=== PATIENT | female | born 1990 | race Caucasian/White ===

== ENCOUNTER 2017-07-08 13:48 | Emergency (ER) | payer MEDICAID ==
[2017-07-08 13:58] VITALS: BP 101/79; PULSE 78; TEMP 98.4; O2SAT 98
[2017-07-08 15:42] VITALS: RESP 20
--- NOTE | 2017-07-08 17:25 | EDPHY ---
H & P Stated Complaint: Flu sxs x several days Time Seen by Provider: 07/08/17 15:36 HPI/ROS: Chief complaint: Cold symptoms History of present illness: This is a 26-year-old female who presents to the emergency department for cold symptoms. Patient reports he has been sick for the last few days. Reports sore throat, runny nose, nasal congestion, nonproductive cough. She denies precipitating factors. She denies alleviating factors. She denies other associated signs or symptoms including no current fevers, no rash, no respiratory distress. - Personal History LMP (Females 10-55): IUD In Place Current Tetanus Diphtheria and Acellular Pertussis (TDAP): Yes Tetanus Vaccine Date: 2009 - Medical/Surgical History Hx Asthma: Yes Hx Chronic Respiratory Disease: No Hx Diabetes: No Hx Cardiac Disease: No Hx Renal Disease: No Hx Cirrhosis: No Hx Alcoholism: No Hx HIV/AIDS: No Hx Splenectomy or Spleen Trauma: No Other PMH: PMH: pre diabetes, sleep apnea, PTSD, night terrors, depression, ADHD , anxiety, panic attacks, IV drug use - Social History Smoking Status: Current every day smoker - Physical Exam Exam: General Appearance: Alert and no distress. Eyes: Pupils equal and round no injection. ENT:Tympanic membranes, external auditory canals, external ears and surrounding soft tissue including over the mastoids are unremarkable. Nasopharynx is not injected. There is no rhinorrhea. Oropharynx is mildly injected. There is no edema. There is no exudate. There is no asymmetry. The uvula is midline. No elevation of the tongue. There is no hoarseness, no drooling, no trismus, no stridor. Respiratory: Chest is non tender, lungs are clear to auscultation. Cardiac: regular rate and rhythm Musculoskeletal: Neck is supple and non tender. Extremities have full range of motion and are non tender. Skin: No rashes or lesions. Constitutional: Initial Vital Signs Temperature (C) 36.9 C 07/08/17 13:51 Heart Rate 78 07/08/17 13:51 Respiratory Rate 108 H 07/08/17 13:51 Blood Pressure 101/79 07/08/17 13:51 O2 Sat (%) 98 07/08/17 13:51 O2 Delivery Mode Room Air Allergies/Adverse Reactions: Penicillins Allergy (Mild, Verified 07/08/17 13:51) Rash Home Medications: Medication Instructions Recorded Gabapentin [Neurontin] 900 mg PO HS 08/06/15 Methadone HCl [Methadone Oral 25 mg PO DAILY 08/06/15 Liquid] traZODone [traZODONE 100MG (RX)] 200 mg PO HS 08/06/15 Ondansetron Odt [Zofran Odt 4 mg 4 mg PO Q4 PRN #10 tab 11/14/15 (RX)] VYVANSE 11/29/15 Doxycycline Hyclate 06/28/16 Fluticasone Nasal [Flonase Nasal 2 sprays NASAL DAILY #1 mdi 06/28/16 [place] (RX)] Medical Decision Making ED Course/Re-evaluation: Patient seen under the supervision of my secondary supervising physician Dr. Joni Kingsley. Patient presents to the emergency department for cold symptoms. She is nontoxic. Influenza swab is negative. Strep swab is negative. Likely a viral syndrome. She is discharged home. Home care is discussed. Return precautions are given. Of note while completing this patient's chart her strep culture came back positive. She was contacted informed of this by the charge nurse. She has a penicillin allergy and is therefore started on a Z-Didier. Differential Diagnosis: Included but not limited to pharyngitis, strep pharyngitis, influenza, sinusitis , unlikely abscesses such as peritonsillar abscess or retropharyngeal abscess or Tyler's angina Departure - Departure Disposition: Home, Routine, Self-Care Clinical Impression: Viral syndrome Condition: Good Instructions: Viral Syndrome (ED) Additional Instructions: Follow-up with the primary care doctor for recheck Use [id number] cold medications for symptom control If symptoms worsen or new symptoms develop return to the emergency room for recheck Referrals: Rico Esposito MD [Primary Care Provider] - As per Instructions Stand Alone Forms: Work Excuse
[2017-07-08 20:15] LABS: GROUP A STREP DNA (THROAT) POSITIVE (NEGATIVE)
== END 2017-07-08 17:51 | disposition home or self-care (01) ==
DX: B34.9 Viral infection, unspecified (principal); J45.909 Unspecified asthma, uncomplicated; F17.200 Nicotine dependence, unspecified, uncomplicated

== ENCOUNTER 2017-11-28 12:23 | Emergency (ER) | payer MEDICAID ==
[2017-11-28 12:32] VITALS: BP 117/91
[2017-11-28] MEDS ORDERED: CHLORDIAZEPOXIDE 25MG PREPK#6 BTL TAKEHOME ONE (12:36)
--- NOTE | 2017-11-28 13:04 | EDPHY ---
H & P Stated Complaint: etoh withdrawl, sent by arc - Personal History LMP (Females 10-55): 8-14 Days Ago Current Tetanus/Diphtheria Vaccine: Yes Current Tetanus Diphtheria and Acellular Pertussis (TDAP): Yes Tetanus Vaccine Date: 2009 - Medical/Surgical History Hx Asthma: Yes Hx Chronic Respiratory Disease: No Hx Diabetes: No Hx Cardiac Disease: No Hx Renal Disease: No Hx Cirrhosis: No Hx Alcoholism: No Hx HIV/AIDS: No Hx Splenectomy or Spleen Trauma: No Other PMH: PMH: pre diabetes, sleep apnea, PTSD, night terrors, depression, ADHD , anxiety, panic attacks, IV drug use. psh: , dental - Social History Smoking Status: Current every day smoker Time Seen by Provider: 11/28/17 12:50 HPI/ROS: CHIEF COMPLAINT:"I am withdrawing" HISTORY OF PRESENT ILLNESS: 27-year-old female history of daily alcohol use her arrives via private vehicle after she self presented [facility]. Last drink of alcohol was approximately 8:00 a.m. Today. She is feeling tremulous. He has prior history of seizures from alcohol withdrawal none recently. No hallucination. No suicidal or homicidal ideation. No trauma no fall REVIEW OF SYSTEMS: A ten point review of systems was performed and is negative with the exception of the items mentioned in the HPI PAST MEDICAL & SURGICAL HISTORY: Alcoholism SOCIAL HISTORY: Last drink of alcohol 8:00 a.m. Today PHYSICAL EXAM (Prior to examination, patient consented to physical exam, hands were washed and my usual and customary physical exam procedures followed) 1) GENERAL: Well-developed, well-nourished, alert and oriented. Appears anxious. Tremulous. 2) HEAD: Normocephalic, atraumatic 3) HEENT: Pupils equal, round, reactive to light bilaterally. Sclera anicteric. 4) NECK: Full range of motion, no meningeal signs. 5) LUNGS: Clear auscultation bilaterally, no wheezes, no rhonchi, no retractions. 6) HEART: Regular rate and rhythm, no murmur, no heave, no gallop. 7) ABDOMEN: No guarding, no rebound, no focal tendernes, 8) MUSCULOSKELETAL: No peripheral edema or discoloration.] 9) BACK: No obvious trauma, no visual or palpable abnormality. 10) SKIN: No rash, no petechiae. 11) Psychiatric: Patient is oriented X 3, there is no agitation. Tremulous DIFFERENTIAL DIAGNOSIS: In no particular order including but not limited to delirium tremens, acute alcohol withdrawal, alcohol withdrawal seizure (Murtaza Bond Leeanne) Constitutional: Initial Vital Signs Temperature (C) 36.5 C 11/28/17 12:30 Heart Rate 111 H 11/28/17 12:30 Respiratory Rate 16 11/28/17 12:30 Blood Pressure 117/91 H 11/28/17 12:30 O2 Sat (%) 97 11/28/17 12:30 O2 Delivery Mode Room Air Allergies/Adverse Reactions: Penicillins Allergy (Mild, Verified 07/08/17 13:51) Rash Home Medications: Medication Instructions Recorded Gabapentin [Neurontin] 900 mg PO HS 08/06/15 Methadone HCl [Methadone Oral 25 mg PO DAILY 08/06/15 Liquid] traZODone [traZODONE 100MG (RX)] 200 mg PO HS 08/06/15 Ondansetron Odt [Zofran Odt 4 mg 4 mg PO Q4 PRN #10 tab 11/14/15 (RX)] VYVANSE 11/29/15 Doxycycline Hyclate 06/28/16 Fluticasone Nasal [Flonase Nasal 2 sprays NASAL DAILY #1 mdi 06/28/16 [place] (RX)] Medical Decision Making ED Course/Re-evaluation: Doubt delirium tremens. No seizure. [facility]. Care of patient under supervision of [secondary] supervising physician Dr Messi Lynn. (Murtaza Bond Leeanne) I did not see this patient while she was in the emergency department. However her care was discussed with the PA while the patient was in the department. I agree with treatment plan and management (Messi Lynn) - Data Points Medications Given: Discontinued Medications Chlordiazepoxide (Librium 25 Mg Prepack#6) 1 btl TAKEHOME EDNOW ONE Stop: 11/28/17 12:37 Last Admin: 11/28/17 13:04 Dose: 1 btl Departure - Departure Disposition: Home, Routine, Self-Care Clinical Impression: Alcohol withdrawal Qualifiers: Complication of substance-induced condition: uncomplicated Qualified Code(s): F10.230 - Alcohol dependence with withdrawal, uncomplicated Condition: Good Instructions: Chlordiazepoxide (By mouth), Abuse of Alcohol (ED) Referrals: [facility] [Outside] - 1-2 days without fail
== END 2017-11-28 13:16 | disposition home or self-care (01) ==
DX: F10.230 Alcohol dependence with withdrawal, uncomplicated (principal); J45.909 Unspecified asthma, uncomplicated; F17.200 Nicotine dependence, unspecified, uncomplicated

== ENCOUNTER 2018-05-09 19:19 | Emergency (ER) | payer MEDICAID ==
--- NOTE | 2018-05-09 19:46 | EDPHY ---
General - History Smoking Status: Current every day smoker Time Seen by Provider: 05/09/18 19:39 Narrative: CHIEF COMPLAINT: "I am withdrawing from alcohol" HISTORY OF PRESENT ILLNESS: Patient presents with complaints of "withdrawing from alcohol."She reports ingestion of approximately 2 vodka daily, last intake approximately 23 hr ago. She has had nausea, vomiting, abdominal pain, shaking and chills. No chest pain. No headache. She feels that "my insides are being scooped out."No bleeding from any site. No trauma or injury. She denies any drug use today. She has several year history of alcohol abuse. She denies any history of seizures. No other associated complaints or modifying factors. REVIEW OF SYSTEMS: 10 systems were reviewed and negative with the exception of the elements mentioned in the history of present illness. PCP: Dr. Rico Esposito SPECIALISTS: None PAST MEDICAL HISTORY: Alcohol dependency, previous substance abuse, PTSD, nightmares, depression, attention deficit hyperactivity disorder, anxiety, panic attacks PAST SURGICAL HISTORY: , dental surgery SOCIAL HISTORY: Endorses tobacco and alcohol use. Denies any illicit substance use. Previous IV drug user FAMILY HISTORY: Noncontributory EXAMINATION: General Appearance: Alert, no distress Head: normocephalic, atraumatic Eyes: Pupils equal and round, no conjunctival pallor or injection ENT, Mouth: Mucous membranes moist Neck: Normal inspection, supple, non-tender Respiratory: Lungs are clear to auscultation Cardiovascular: Tachycardic rate. Regular rhythm. No murmur Gastrointestinal: Abdomen is soft and nontender Back: non-tender, no bony abnormalities Neurological: GCS 15. A&O, nonfocal, normal gait. No tremor. Normal finger-to -nose. No pronator drift Skin: Warm and dry, no rash no petechiae or purpura Extremities: Nontender, no pedal edema Psychiatric: Mood and affect normal DIFFERENTIAL DIAGNOSES: Including but not limited to acute alcohol intoxication, alcohol withdrawal, delirium tremens, substance abuse MDM: 7:45 p.m. Reports of acute alcohol withdrawal with suspected acute alcohol intoxication. I do not detect strong odor of alcohol, but she has no tremor. There is no encephalopathy. No evidence of delirium tremens. She is afebrile. I do not appreciate any seizure activity. I have ordered laboratory studies were her vomiting abdominal pain, but her abdominal exam remains benign. MARIEL score being obtained. 8:10 p.m. Initial CIWA score is 2. 8:50 p.m. Patient's blood alcohol level is 359. She exhibits no signs of withdrawals to me. She has been examined by attending physician. We both agreed she is stable for discharge to the [facility] for monitor detoxification. She is ambulatory without assistance several times in this department. No vomiting. Her abdominal pain decreased in her abdominal exam remains benign. We discussed discharge to the [facility] for monitor detoxification, and she is agreeable and would like to do this. Discharged stable condition to [facility] for detox. SUPERVISION: Patient was evaluated and examined in conjunction with my secondary supervising physician as documented. We have both examined the patient. CONSULTATION: None (Gabriel Kramer) Medical Decision Making: INDEPENDENT PHYSICIAN EVALUATION I evaluated and participated in the management of the patient. I also evaluated the patient independently. My co-signature indicates that I have reviewed this chart and I agree with the findings and plan of care as documented. My personal H&P findings include: The patient presents the emergency department with complaints of being alcohol withdrawal. She did drink alcohol earlier today. She describes nausea and restlessness. The patient denies any additional acute medical complaints. She denies any suicidal or homicidal ideation. The patient is interested in going to the [facility]. Physical exam General Appearance: Alert, no distress Eyes: Pupils equal and round no pallor or injection ENT, Mouth: Mucous membranes moist Respiratory: There are no retractions, lungs are clear to auscultation Cardiovascular: Regular rate and rhythm Gastrointestinal: Abdomen is soft and nontender, no masses, bowel sounds normal Neurological: A&O, normal motor function, normal sensory exam, normal cranial nerves Skin: Warm and dry, no rashes Musculoskeletal: Neck is supple nontender Extremities: symmetrical, full range of motion Psychiatric: Patient is oriented X 3, there is no agitation ED course Patient's vital signs are stable. She did receive some IV fluids. The patient' s CIWA score was 2. She did receive 1 mg of IV Ativan. The patient is amenable to going to the [facility]. She will be discharged to their with a Librium prepack (Tomas Navas) - Objective Vital Signs: Initial Vital Signs Temperature (C) 98.1 F 05/09/18 19:37 Heart Rate 116 H 09/05/18 19:37 Respiratory Rate 20 05/09/18 19:37 Blood Pressure 149/101 H 05/09/18 19:37 O2 Sat (%) 95 05/09/18 19:37 O2 Delivery Mode Room Air Allergies/Adverse Reactions: Penicillins Allergy (Mild, Verified 05/09/18 19:37) Rash Home Medications: Medication Instructions Recorded Gabapentin [Neurontin] 900 mg PO HS 08/06/15 Methadone HCl [Methadone Oral 25 mg PO DAILY 08/06/15 Liquid] traZODone [traZODONE 100MG (RX)] 200 mg PO HS 08/06/15 Ondansetron Odt [Zofran Odt 4 mg 4 mg PO Q4 PRN #10 tab 11/14/15 (RX)] VYVANSE 11/29/15 Doxycycline Hyclate 06/28/16 Fluticasone Nasal [Flonase Nasal 2 sprays NASAL DAILY #1 mdi 06/28/16 [place] (RX)] Laboratory Results: Laboratory Results 05/09/18 19:55 05/09/18 05/09/18 19:55 19:55 Sodium 140 mEq/L mEq/L (135-145) Potassium 3.6 mEq/L mEq/L (3.3-5.0) Chloride 96 mEq/L L mEq/L (97-110) Carbon Dioxide 22 mEq/l mEq/l (22-31) Anion Gap 22 mEq/L H mEq/L (8-16) BUN 7 mg/dL mg/dL (7-23) Creatinine 0.7 mg/dL mg/dL (0.6-1.0) Estimated GFR > 60 Glucose 77 mg/dL mg/dL (70-100) Calcium 8.4 mg/dL L mg/dL (8.5-10.4) Lipase 244 IU/L IU/L (23-300) Beta HCG, Qual NEGATIVE Ethyl Alcohol 389 mg/dL H mg/dL (0-10) Medications Given: Discontinued Medications Chlordiazepoxide (Librium 25 Mg Prepack#6) 1 btl TAKEHOME EDNOW ONE Stop: 05/09/18 21:00 Last Admin: 05/09/18 21:06 Dose: 1 btl Sodium Chloride (Ns) 1,000 mls @ 0 mls/hr IV EDNOW ONE; Wide Open PRN Reason: Protocol Stop: 05/09/18 19:52 Last Admin: 05/09/18 20:21 Dose: 1,000 mls Lorazepam (Ativan Injection) 1 mg IVP EDNOW ONE Stop: 05/09/18 20:41 Last Admin: 05/09/18 20:47 Dose: 1 mg Departure - Departure Disposition: Home, Routine, Self-Care Clinical Impression: Alcohol dependence Qualifiers: Substance use status: unspecified alcohol-induced disorder Qualified Code(s): F10.29 - Alcohol dependence with unspecified alcohol-induced disorder Condition: Good Instructions: Chlordiazepoxide (By mouth), Alcohol Dependence (ED) Additional Instructions: 1. Discharge to [facility] for monitored detoxification 2. Contact her primary care physician tomorrow for further help with alcohol cessation Referrals: Rico Esposito MD [Primary Care Provider] - As per Instructions [facility] 24 Hours [Outside] - As per Instructions
[2018-05-09] MEDS ORDERED: NS 1,000 ML IV ONE (19:51)
[2018-05-09] MEDS ORDERED: LORazepam 2 MG/ML INJ IVP ONE (20:40)
[2018-05-09] MEDS ORDERED: CHLORDIAZEPOXIDE 25MG PREPK#6 BTL TAKEHOME ONE (20:59)
[2018-05-09 21:16] VITALS: BP 123/95
== END 2018-05-09 21:10 | disposition home or self-care (01) ==
DX: F10.29 Alcohol dependence with unspecified alcohol-induced disorder (principal); F10.220 Alcohol dependence with intoxication, uncomplicated; E86.9 Volume depletion, unspecified; Y90.8 Blood alcohol level of 240 mg/100 ml or more
CPT/HCPCS: 96374; G0480; J2060

== ENCOUNTER 2018-09-26 21:45 | Emergency (ER) | payer MEDICAID, OTHER ==
--- NOTE | 2018-09-26 22:14 | EDPHY ---
H & P Stated Complaint: FEVER NAUSEA FLU LIKE SX 1 WK Time Seen by Provider: 09/26/18 22:13 HPI/ROS: HPI: This is a 27-year-old female who presents with Chief Complaint: FEVER NAUSEA FLU LIKE SX 1 WK Location: GI Quality: Fever, nausea Duration: 3 week Signs and Symptoms: + subjective fever, + nausea, + vomiting, no diarrhea, no urinary symptoms, no chest pain, no shortness of breath, no wheezing, no cough, no sore throat, no neck stiffness, no joint pain, no swollen glands, no ear pain , no rash Timing: Acute, worse Severity: [id number] Context: Patient has a history of pre diabetes, depression, IV drug use, IUD in place, presents today with 3 week history of subjective fever, nausea, vomiting several days ago but none recently, diarrhea several days ago but none recently accompanied by right lower quadrant pain in the last 2 days. Patient reports that she still able to eat and drink. She reports that she has had a fever that has been subjective in nature. She believes that she may have had the flu a week ago or maybe "a stomach bug."Patient reports that she will not be able to afford any of the medications that I prescribed. Patient has no Medicaid since the beginning of the year and she has been trying for the last 3 weeks. Modifying Factors: None Comment: ROS: A comprehensive 10 system review of systems is otherwise negative aside from elements mentioned in the history of present illness. MEDICAL/SURGICAL/SOCIAL HISTORY: PMH: pre diabetes, sleep apnea, PTSD, night terrors, depression, ADHD, anxiety, panic attacks, IV drug use, IUD in place psh: , dental Social history: Current every day smoker. Family history noncontributory. CONSTITUTIONAL: Nontoxic-appearing young adult female, awake and alert, no obvious distress HEENT: Atraumatic and normocephalic, PERRL, EOMI. Nares patent; no rhinorrhea; no nasal mucosal edema. Tympanic membranes clear. Oropharynx clear, no exudate and moist pink mucosa. Airway patent. No lymphadenopathy. No meningismus. Cardiovascular: Normal S1/S2, regular rate, regular rhythm, without murmur rub or gallop. PULMONARY/CHEST: Symmetrical and nontender. Clear to auscultation bilaterally. Good air movement. No accessory muscle usage. ABDOMEN: Soft, nondistended, moderate right lower quadrant tenderness, no rebound, no guarding, no peritoneal signs, no masses or organomegaly. No CVAT. EXTREMITIES: 2/2 pulses, strength 5/5, no deformities, no clubbing, no cyanosis or edema. NEUROLOGICAL: no focal neuro deficits. GCS 15. SKIN: Warm and dry, no erythema. no rash. Good capillary refill. Source: Patient Exam Limitations: No limitations - Personal History LMP (Females 10-55): IUD In Place Current Tetanus/Diphtheria Vaccine: Yes Current Tetanus Diphtheria and Acellular Pertussis (TDAP): Yes Tetanus Vaccine Date: 2009 - Medical/Surgical History Hx Asthma: Yes Hx Chronic Respiratory Disease: No Hx Diabetes: No Hx Cardiac Disease: No Hx Renal Disease: No Hx Cirrhosis: No Hx Alcoholism: Yes Hx HIV/AIDS: No Hx Splenectomy or Spleen Trauma: No Other PMH: PMH: pre diabetes, sleep apnea, PTSD, night terrors, depression, ADHD , anxiety, panic attacks, IV drug use. psh: , dental - Social History Smoking Status: Current every day smoker Constitutional: Initial Vital Signs Temperature (C) 36.8 C 09/26/18 21:52 Heart Rate 91 09/26/18 21:52 Respiratory Rate 18 09/26/18 21:52 Blood Pressure 109/66 09/26/18 21:52 O2 Sat (%) 99 09/26/18 21:52 O2 Delivery Mode Room Air Allergies/Adverse Reactions: Penicillins Allergy (Mild, Verified 09/26/18 21:54) Rash Home Medications: Medication Instructions Recorded traZODone [traZODONE 100MG (RX)] 200 mg PO HS 08/06/15 Albuterol Sulfate [Proair Hfa] 8.5 gm IH 09/26/18 Dextroamphetamine/Amphetamine 30 mg PO BID 09/26/18 [Adderall 30 mg Tablet] Medical Decision Making - Diagnostics Imaging Results: Imaging Impressions Abdomen CT 09/26/18 22:19 Impression: 1. Mild bladder wall thickening, which could be related to underdistention or inflammation/infection. 2. Moderate stool in the colon. 3. Cholelithiasis without evidence of cholecystitis. 4. Heterogeneous hepatic enhancement, possibly related to vigorous IV hydration. 5. Narrowing of the left renal vein between the aorta and SMA, of doubtful clinical significance in absence of proteinuria or hematuria. 6. Additional findings as above. Findings discussed with Carla Nguyen 09/26/2018 at 23:40. ED Course/Re-evaluation: Vital signs reviewed and stable upon arrival. No systemic signs. IV access, laboratory studies, urinalysis, CT abdomen and pelvis scan ordered Given 1 L normal saline, IV Toradol 30 mg, IV promethazine 12.5 mg Laboratory studies reviewed. No signs of leukocytosis/anemia/platelet dysfunction/LILIANE/elevated LFTs/electrolyte imbalance/pancreatitis. Called by Radiology who advised that CT abdomen and pelvis scan shows no signs appendicitis, gallstones without coli cystitis, no obstruction, no diverticulitis. 0023: Reassessed patient who is very tearful and frustrated. I suspect that some of her GI issues are related to her stress level. She reports that she has been trying to get Medicaid for the last 3 weeks. She reports that she has daily nausea and has almost ran out of Zofran which "does not work." I offered patient admission for acute nausea and vomiting and she adamantly declines. Case management consult for financial resources and primary care. Patient was given Bentyl 20 mg and a prepack of promethazine This patient was seen under the supervision of my secondary supervising physician. I evaluated care for this patient with attending. Discussed this patient with Dr. Schultz who did not see the patient. Differential Diagnosis: Abdominal pain including but not limited to appendicitis, cholecystitis, gastritis and urinary tract infection. - Data Points Laboratory Results: Laboratory Results 09/26/18 22:20 09/26/18 22:20 09/26/18 09/26/18 09/26/18 22:20 22:20 22:20 WBC 9.09 10^3/uL 10^3/uL (3.80-9.50) RBC 4.51 10^6/uL 10^6/uL (4.18-5.33) Hgb 13.9 g/dL g/dL (12.6-16.3) Hct 40.4 % % (38.0-47.0) MCV 89.6 fL fL (81.5-99.8) MCH 30.8 pg pg (27.9-34.1) MCHC 34.4 g/dL g/dL (32.4-36.7) RDW 12.7 % % (11.5-15.2) Plt Count 293 10^3/uL 10^3/uL (150-400) MPV 9.5 fL fL (8.7-11.7) Neut % (Auto) 59.6 % % (39.3-74.2) Lymph % (Auto) 32.2 % % (15.0-45.0) Dale % (Auto) 6.1 % % (4.5-13.0) Eos % (Auto) 1.2 % % (0.6-7.6) Baso % (Auto) 0.7 % % (0.3-1.7) Nucleat RBC Rel Count 0.0 % % (0.0-0.2) Absolute Neuts (auto) 5.42 10^3/uL 10^3/uL (1.70-6.50) Absolute Lymphs (auto) 2.93 10^3/uL 10^3/uL (1.00-3.00) Absolute Monos (auto) 0.55 10^3/uL 10^3/uL (0.30-0.80) Absolute Eos (auto) 0.11 10^3/uL 10^3/uL (0.03-0.40) Absolute Basos (auto) 0.06 10^3/uL 10^3/uL (0.02-0.10) Absolute Nucleated RBC 0.00 10^3/uL 10^3/uL (0-0.01) Immature Gran % 0.2 % % (0.0-1.1) Immature Gran # 0.02 10^3/uL 10^3/uL (0.00-0.10) Sodium 135 mEq/L mEq/L (135-145) Potassium 4.2 mEq/L mEq/L (3.5-5.2) Chloride 104 mEq/L mEq/L (97-110) Carbon Dioxide 25 mEq/l mEq/l (22-31) Anion Gap 6 mEq/L mEq/L (6-14) BUN 8 mg/dL mg/dL (7-23) Creatinine 0.7 mg/dL mg/dL (0.6-1.0) Estimated GFR > 60 Glucose 79 mg/dL mg/dL (70-100) Calcium 8.9 mg/dL mg/dL (8.5-10.4) Total Bilirubin 0.4 mg/dL mg/dL (0.1-1.4) Conjugated Bilirubin 0.2 mg/dL mg/dL (0.0-0.5) Unconjugated Bilirubin 0.2 mg/dL mg/dL (0.0-1.1) AST 19 IU/L IU/L (14-46) ALT 24 IU/L IU/L (9-52) Alkaline Phosphatase 45 IU/L IU/L (38-126) Total Protein 6.8 g/dL g/dL (6.3-8.2) Albumin 4.2 g/dL g/dL (3.5-5.0) Lipase 154 IU/L IU/L (23-300) Beta HCG, Qual NEGATIVE Medications Given: Discontinued Medications Sodium Chloride (Ns) 1,000 mls @ 0 mls/hr IV EDNOW ONE; Wide Open PRN Reason: Protocol Stop: 09/26/18 22:20 Last Admin: 09/26/18 22:35 Dose: 1,000 mls Ketorolac Tromethamine (Toradol) 30 mg IVP EDNOW ONE Stop: 09/26/18 22:20 Last Admin: 09/26/18 22:33 Dose: 30 mg Promethazine HCl (Phenergan) 12.5 mg IVP EDNOW ONE Stop: 09/26/18 22:20 Last Admin: 09/26/18 22:33 Dose: 12.5 mg Departure - Departure Disposition: Home, Routine, Self-Care Clinical Impression: Nausea & vomiting Qualifiers: Vomiting type: unspecified Vomiting Intractability: non-intractable Qualified Code(s): R11.2 - Nausea with vomiting, unspecified Abdominal pain Qualifiers: Abdominal location: generalized Qualified Code(s): R10.84 - Generalized abdominal pain Condition: Good Instructions: Acute Nausea and Vomiting (ED), Acute Abdominal Pain (ED) Additional Instructions: Consume a minimum of 8-10 glasses of water or electrolyte fluid replacement drinks that include Gatorade, Powerade, Pedialyte. Eat a bland diet for the next 48 hours and then slowly advance as tolerated. Take Phenergan 1 tab every 6 hours as needed for nausea, vomiting. Return to the Emergency Room if symptoms do not resolve in the next 72 hours, you spike a fever > 102 F, or experience intractable abdominal pain/nausea/ vomiting. Referrals: Rico Esposito MD [Primary Care Provider] - As per Instructions Stand Alone Forms: Work Excuse
[2018-09-26] MEDS ORDERED: NS 1,000 ML IV ONE (22:19)
[2018-09-26] MEDS ORDERED: PROMETHAZINE HCL 25 MG/ML INJ IVP ONE (22:19)
[2018-09-26] MEDS ORDERED: KETOROLAC 30 MG/1 ML SDV IVP ONE (22:19)
[2018-09-26 22:39] LABS: PLATELET COUNT 293 10^3/uL (150-400)
[2018-09-26] MEDS ORDERED: IOPAMIDOL (ISOVUE 370) 100 ML BTL IV ONE (23:01)
[2018-09-27] MEDS ORDERED: DICYCLOMINE 10 MG CAP PO ONE (00:21)
[2018-09-27] MEDS ORDERED: PROMETHAZINE 25 MG PREPACK #4 BTL TAKEHOME ONE ×2 (00:21→00:37)
[2018-09-27 00:50] VITALS: BP 119/84
== END 2018-09-27 00:49 | disposition home or self-care (01) ==
DX: R11.2 Nausea with vomiting, unspecified (principal); R10.84 Generalized abdominal pain; R73.03 Prediabetes
CPT/HCPCS: 96374; J1885; J2550; Q9967

== ENCOUNTER 2018-10-30 19:50 | Emergency (ER) | payer MEDICAID ==
--- NOTE | 2018-10-30 20:34 | EDPHY ---
H & P Stated Complaint: abd. pain since surgery/gall bladder Time Seen by Provider: 10/30/18 20:19 HPI/ROS: CHIEF COMPLAINT: Chronic abdominal pain HISTORY OF PRESENT ILLNESS: Patient is a 27-year-old female with a history of chronic abdominal pain. She reports that she has had multiple workups and multiple studies and no clear explanation why she has pain. She used to smoke marijuana but has stopped. She has a known right ovarian cyst which is been chronic although not seen on our previous CT scan here. She also had known gallstones. She had her gallbladder removed on October 12 at [facility]. She was told at the time that there was a 90% chance the surgery would not improve her pain. She had been on Bentyl, Flexeril, Protonix, ibuprofen, Tylenol, oxycodone, tramadol and Zofran all at the same time to control her symptoms. She states that 2 weeks ago her doctor told her to "get off of all that junk" except for tramadol and Zofran. She states that her pain seemed escalate when she went off of all of her medications. She has now restarted them all on her own. She had an appointment today but missed it because she was sleeping because she has not been sleeping well because of the pain. No vomiting. No fever. No diarrhea. She states that her pain is chronic and unchanged. She is very frustrated because she cannot get an answer why it hurts. She states that the gastrologist have seen her in the hospital and told her that they do not have a way to help her. She has been seen by Psychiatry and is taking an Ativan for PTSD and anxiety she states that this does not help either. She came to the ER today because her pain continues and she is frustrated and on Monday she thinks she may have passed out while standing up to go to the bathroom at night. No chest pain or shortness of breath. Her pain is been unchanged and then improved over the last several months. She tells me today is not worse than usual. She tells me that it sometimes starts in her right chest and then migrates to her right flank and right lower quadrant and then to her left lower quadrant and most frequently involves her entire abdomen. Severity: Severe but intermittent Modifying factors: None REVIEW OF SYSTEMS: Constitutional: denies: chills, fever, recent illness, recent injury EENTM: denies: blurred vision, double vision, nose congestion Respiratory: denies: cough, shortness of breath Cardiac: denies: chest pain, irregular heart rate, lightheadedness, palpitations Gastrointestinal/Abdominal: See HPI Genitourinary: denies: dysuria, frequency, hematuria, pain Musculoskeletal: denies: joint pain, muscle pain Skin: denies: lesions, rash, jaundice, bruising Neurological: denies: headache, numbness, paresthesia, tingling, dizziness, weakness Hematologic/Lymphatic: denies: blood clots, easy bleeding, easy bruising Immunologic/allergic: denies: HIV/AIDS, transplant 10 systems reviewed and negative except as noted EXAM: GENERAL: Well-appearing, well-nourished and in no acute distress. HEAD: Atraumatic, normocephalic. EYES: Pupils equal round and reactive to light, extraocular movements intact, sclera anicteric, conjunctiva are normal. ENT: TMs normal, nares patent, oropharynx clear without exudates. Moist mucous membranes. NECK: Normal range of motion, supple without lymphadenopathy or JVD. LUNGS: Breath sounds clear to auscultation bilaterally and equal. No wheezes rales or rhonchi. HEART: Regular rate and rhythm without murmurs, rubs or gallops. ABDOMEN: Soft, nontender, normoactive bowel sounds. No guarding, no rebound. No masses appreciated. BACK: No CVA tenderness, no spinal tenderness, step-offs or deformities EXTREMITIES: Normal range of motion, no pitting or edema. No clubbing or cyanosis. NEUROLOGICAL: Cranial nerves II through XII grossly intact. Normal speech, normal gait. 5/5 strength, normal movement in all extremities, normal sensation , normal reflexes PSYCH: Normal mood, normal affect. SKIN: Warm, dry, normal turgor, no visible rashes or lesions. Source: Patient Exam Limitations: No limitations - Personal History LMP (Females 10-55): IUD In Place Current Tetanus Diphtheria and Acellular Pertussis (TDAP): Yes Tetanus Vaccine Date: 2009 - Medical/Surgical History Hx Asthma: Yes Hx Chronic Respiratory Disease: No Hx Diabetes: No Hx Cardiac Disease: No Hx Renal Disease: No Hx Cirrhosis: No Hx Alcoholism: Yes Hx HIV/AIDS: No Hx Splenectomy or Spleen Trauma: No Other PMH: PMH: pre diabetes, sleep apnea, PTSD, night terrors, depression, ADHD , anxiety, panic attacks, IV drug use. psh: , dental - Family History Significant Family History: No pertinent family hx - Social History Smoking Status: Current every day smoker Alcohol Use: None Constitutional: Initial Vital Signs Temperature (C) 36.7 C 10/30/18 20:01 Heart Rate 108 H 10/30/18 20:01 Respiratory Rate 16 10/30/18 20:01 Blood Pressure 100/74 10/30/18 20:01 O2 Sat (%) 97 10/30/18 20:01 O2 Delivery Mode Room Air Allergies/Adverse Reactions: Penicillins Allergy (Mild, Verified 10/30/18 19:58) Rash Home Medications: Medication Instructions Recorded traZODone [traZODONE 100MG (RX)] 200 mg PO HS 08/06/15 Albuterol Sulfate [Proair Hfa] 8.5 gm IH 09/26/18 Dextroamphetamine/Amphetamine 30 mg PO BID 09/26/18 [Adderall 30 mg Tablet] Pantoprazole Sodium 10/30/18 Zofran 10/30/18 traMADol 10/30/18 Medical Decision Making ED Course/Re-evaluation: The patient's abdominal exam is completely benign. She is very dramatic and tearful. She tells me that her pain is unchanged over the last several months and is not worse today than usual. We discussed options as far as medications. She is already on almost every medication we could think of. We discussed testing to perform. She has had every test that we have available recently and does not wish to repeat them. We discussed blood work which she also states is always normal does not wish to repeat. We also discussed her possible syncopal events. She states that she does not actually lose consciousness but simply feels lightheaded when she stands up. She thinks that is because she is not eating well. Discussed performing EKG and lab work to assess for syncope but she also does not think that this would be beneficial. At this time we discussed her expectations for being in the emergency department and what it is that I can help her with. She cannot think of anything that I can help her with. I told her that I could at least get her a referral to Gastroenterology. She states that she has already seen gastrology but is willing to try are gastrologist here now that her insurance has changed. She is somewhat frustrated that I do not have an answer for her chronic symptoms. We discussed the fact that she has been seen by multiple specialists who also do not have an answer for her symptoms. She does not wish to have new testing or have new prescriptions. She is somewhat unsatisfied but understands. Differential Diagnosis: Partial list of the Differential diagnosis considered include but were not limited to; chronic abdominal pain, medication dependency, depression, anxiety and although unlikely based on the history and physical exam, I also considered obstruction, appendicitis, diverticulitis, , ovarian cyst, urinary tract infection, PID. Departure - Departure Disposition: Home, Routine, Self-Care Clinical Impression: Chronic abdominal pain Condition: Good Instructions: Chronic Abdominal Pain (ED) Referrals: Rico Esposito MD [Primary Care Provider] - As per Instructions Hari Locke MD, FACG [Medical Doctor] - 5-7 days, call for appt.
[2018-10-30 21:07] VITALS: BP 138/89
== END 2018-10-30 21:02 | disposition home or self-care (01) ==
DX: R10.9 Unspecified abdominal pain (principal); G89.29 Other chronic pain; F41.9 Anxiety disorder, unspecified; F43.10 Post-traumatic stress disorder, unspecified